=== PATIENT | male | born 1950 | race Caucasian/White ===

== ENCOUNTER → 2020-06-29 | Outpatient (CLI) | payer SELFPAY | END | disposition home or self-care (01) | LOC: LABSPEC 15:37 | PROVIDERS: PCP Family Medicine; Referring Provider Otolaryngology Otolaryngology/Facial Plastic Surgery; Visit Provider Otolaryngology Otolaryngology/Facial Plastic Surgery | DX: J32.9 Chronic sinusitis, unspecified (principal) | CPT/HCPCS: 87070; 87205 ==

== ENCOUNTER → 2020-08-24 10:46 | Outpatient (CLI) | payer OTHER, SELFPAY ==
[2020-08-24 11:20] LABS: Erythrocyte Sedimentation Rate 8 mm/hr (0-20)
[2020-08-24 11:21] LABS: Absolute Lymphocyte Count 1.35 X10^3/uL (0.83-4.51); Absolute Neutrophil Count 7.7 X10^3/uL (2.0-7.7); Basophil# 0.11 X10^3/uL; Basophil% 1.1 % (0-1); Eosinophil# 0.13 X10^3/uL; Eosinophils% 1.2 % (0-5); Hematocrit 51.7 % (40-54); Hemoglobin 17.8 g/dL (13.0-16.5); Lymphocyte # 1.35 X10^3/ul (4.0); Mean Corp Hgb Conc 34.4 g/dL (32-36); Mean Corpuscular Hgb 34.8 pg (27.0-32.0); Mean Platelet Vol. 9.3 fl (6.2-12.0); Monocyte# 1.05 X10^3/uL; Monocyte% 10.1 % (0-10); NRBC Flagged by Analyzer 0 % (0-5); Neutrophil # 7.74 X10^3/uL (2.7-7.7); Neutrophil % 74.3 % (47-70); Platelet Count 290 K/mm3 (150-450); RBC Distribution Width CV 12.3 % (11.6-14.6); RBC Distribution Width SD 46.6 fl (35.1-43.9); Red Blood Count 5.12 M/mm3 (4.6-6.2); White Blood Count 10.4 K/mm3 (4.4-11.0)
== END ==
PROVIDERS: PCP Family Medicine; Referring Provider Physician Assistant; Visit Provider Physician Assistant
DX: M16.12 Unilateral primary osteoarthritis, left hip (principal)
CPT/HCPCS: 36415; 85025; 85652; 86140

== ENCOUNTER 2021-01-10 07:48 | Day surgery (SDC) | payer OTHER, MEDICARE, SELFPAY ==
[2021-01-03 14:49] LABS: Hematocrit 45.4 % (40-54); Mean Corp Hgb Conc 35.2 g/dL (32-36); Mean Corpuscular Hgb 33.9 pg (27.0-32.0); Mean Corpuscular Volume 96.2 fL (80-94); Mean Platelet Vol. 9.6 fl (6.2-12.0); Platelet Count 269 K/mm3 (150-450); RBC Distribution Width CV 13.9 % (11.6-14.6); RBC Distribution Width SD 49.7 fl (35.1-43.9); Red Blood Count 4.72 M/mm3 (4.6-6.2); White Blood Count 10.7 K/mm3 (4.4-11.0)
[2021-01-03 15:18] LABS: Anion Gap 7 (5-15); BUN 10 mg/dL (7-18); BUN/Creat Ratio 14.2 RATIO (10-20); Chloride 107 mmol/L (98-107); EST Glomerular Filtration Rate 118 mL/min (>60); Est Glom Filt Rate - Afr Amer 143 mL/min (>60); Glucose 94 mg/dL (74-106); Potassium 3.1 mmol/L (3.5-5.1); Sodium Level 139 mmol/L (136-145)
[2021-01-03 15:19] LABS: International Normalized Ratio 1.1; Prothrombin Time (Protime)PT. 13.2 SECONDS (11.7-14.9)
[2021-01-03 15:20] LABS: Partial Thromboplast Time 26.9 Seconds (24.1-36.2)
[2021-01-03 15:23] LABS: AST(SGOT) 64 U/L (15-37); Alanine Aminotransfer ALT/SGPT 56 U/L (16-61); Alkaline Phosphatase 129 U/L (45-117); Bilirubin, Direct 0.45 mg/dL (0.00-0.30); Magnesium 1.7 mg/dL (1.6-2.6)
--- NOTE | 2021-01-04 09:04 | EKG12_ITS ---
Test Reason : PRE OP Blood Pressure : / mmHG Vent. Rate : 092 BPM Atrial Rate : 092 BPM P-R Int : 156 ms QRS Dur : 100 ms QT Int : 392 ms P-R-T Axes : 027 -01 013 degrees QTc Int : 484 ms Normal sinus rhythm Septal infarct , age undetermined Inferior infarct , age undetermined Abnormal ECG Confirmed by XI HARMON, NI ([id number]), marketing editor DEWAYNE WARNER ([id number]) on 01/04/2021 9:05:23 AM Referred By: Bar Angel Confirmed By:NI LAYNE MD
[2021-01-10] VITALS (12 sets, daily range): BP systolic 119–149; BP diastolic 66–83; PULSE 79–95; RESP 16; TEMP 36.3–37.3; O2SAT 94–100; BMI 27.6
[2021-01-10 08:31] LABS: Bedside Glucose 117 mg/dL (70-110)
[2021-01-10] MEDS: Lactated Ringers 1,000 ML 125 ML IV ×2 (08:49→10:46)
[2021-01-10] MEDS: Acetaminophen 500 MG Tablet 1000 MG PO ×2 (08:51→16:29)
[2021-01-10] MEDS: Gabapentin 600 MG Tablet PO (08:51)
--- NOTE | 2021-01-10 10:00 | FEM_PTH ---
PATIENT: ULICES HEAD LOC: [facility] [place] U#:[id number] AGE/SX: 70/M ROOM: RE01/10/[address]: Dr. Bar Angel DO : 1950 BED: DIS: 01/10/2021 SPEC #: [id number] RECD: 01/10/21 13:26 STATUS: ANDREINA RELorenza #: [id number] TEDDY: 01/10/21 10:[address]: Bar Angel DEPT: SURGICAL PATHOLOGY RECD BY: Monique Nolasco ENTERED: 01/11/21 08:29 SP TYPE: FEM HEAD OTHR DR: Dr. Mitchell Morocho MD Tissues: Femoral region, NOS Procedures: Decalcification bone/plaque Surgery Specimen Level IV HEADER OPERATION: ERAS, total hip replacement PRE-OP DIAGNOSIS: Idiopathic aseptic necrosis of left femur; osteoarthritis left hip TISSUE SUBMITTED: Left hip bone and soft tissue MICROSCOPIC DIAGNOSIS Left hip bone and tissue, total hip replacement/resection: Femoral head with degenerative osteoarthritic changes and focal changes consistent with avascular necrosis. PETER:anne 01/14/2021 MICROSCOPIC DESCRIPTION Slides are reviewed. GROSS DESCRIPTION Received is one container labeled with the patient's name and designated left hip bone and soft tissue. The specimen consists of a guidry femoral head with portion of femoral neck. The femoral head measures 5.5 x 5.5 x 4 cm and the femoral neck measures 1 cm in length. The articular surface shows focal area of guidry-white irregular area. The articular surface also shows focal area of osteophyte formation and eburnation. Also present in the specimen container are multiple irregular fragments of bone reamings and pink-yellow soft tissue measuring in aggregate 8 x 7 x 3 cm. It predominantly consists of bone reamings. Portion of articular cartilage is also noted detached from the femoral head which measures 3 x 2 x 0.2 cm. Sections reveal a focal guidry-white area underneath the irregular surface of the cartilage measuring 2.5 x 0.5 cm suspicious for avascular necrosis. Tool/Die Maker sections are submitted in three cassettes after decalcification as follows: 1 - bone reamings and detached piece of articular cartilage, 2 & 3 - femoral head. / PETER:anne 01/12/21 TC:3 CPT: 32779, 33221
--- NOTE | 2021-01-10 11:40 | RAD_ITS ---
STUDY: X-RAY - PELVIS AND LEFT HIP REASON FOR EXAM: Postop left hip arthroplasty. TECHNIQUE: 2 views of the pelvis and hip. COMPARISON: None. FINDINGS: There is postoperative gas in the soft tissues and overlying skin ascencion. Normal bilateral superior and inferior pubic rami. Normal pubic symphysis. Normal bilateral ischial tuberosities. There is a left hip arthroplasty without evidence of complication. RAD/Hip Min 2 Views (Portable) IMPRESSION: Uncomplicated left hip arthroplasty. Electronically Signed: Huber Estrella MD at 12:32 EDT Tel , Service support ,
--- NOTE | 2021-01-10 13:38 | PCM.OPRPT ---
Report of Operation Date of Procedure: 01/10/21 Pre-Operative Diagnosis: OA left hip Post-Operative Diagnosis: same Surgery/Procedure Performed:: Left THR Description of Surgical Findings:: Primary Surgeon/Physician: Bar Angel rn telehealth: Gene Carlson PA-C rn telehealth: Pre-Operative Diagnosis: OA left hip Post-Operative Diagnosis: same Surgery/Procedure Performed: Left THR Estimated Blood Loss: 150 cc Specimen's Removed:femoral head Type of Anesthesia: spinal ASA Class: ASA 2 Implants: [[place] size 9 Accolade 2 stem, 56 mm cup, MDM -4 x 132 ceramic femoral head ] Surgical Indications: Patient has severe end-stage osteoarthritic changes in the [left ] hip. They have failed conservative measures including activity modification, anti-inflammatories, use of assistive devices. This to the point where the pain affects their ability to enjoy life and complete activities of daily living without discomfort. Patient has elected to undergo the above procedure Procedure Description: The patient was greeted in the preoperative area the [left ] hip was marked with surgical marker preoperative antibiotics administered. The patient was then taken to or suite in stable condition. Preoperative tranexamic acid was also utilized. Once the patient was placed in the supine position on the operating room table and once adequate anesthesia was obtained they were then placed in the lateral decubitus position with the surgical hip facing the field. All bony prominences were well-padded. A commercial hip position was utilized. The appropriate extremity was then prepped and draped in usual sterile fashion. Ioban was placed on the skin. Surgical timeout was performed and surgery was commenced. A standard posterior approach to the hip was then performed. Incision was planned and carried out with a #10 blade scalpel. Dissection was then carried length of the incision to the IT band which was split proximally and distally. A Charnley retractor was then placed for soft tissue retraction exposing the piriformis. A standard posterior capsulotomy was performed. Severe eburnation of bone was noted and periarticular osteophytes were identified consistent with severe end-stage osteoarthritis. A femoral neck osteotomy guide was used to yumi the proximal femur. A femoral osteotomy was then created approximately 1 fingerbreadth above the lesser trochanter. This was measured and placed on the back table. Once this was complete acetabular retractors were placed anteriorly and posteriorly. Labrum was then removed from the acetabulum exposing the entire cup of the acetabulum. Sequential reaming was then commenced and the acetabulum was medialized and sequentially widened in order to accommodate appropriate size cup. The acetabular cup was then impacted into position to the appropriate depth referencing approximately 30? anteversion and 45? of inclination. Excellent purchase was obtained. An appropriate size MDM liner was then placed. Attention was then turned to the femoral preparation. The hip was placed in the 90/90 position and a lateralizing box osteotome was utilized. Femoral starting awl was used followed by sequential broaching to the appropriate size. Excellent purchase was obtained with the stem no stem subsidence and excellent rotational stability was confirmed. A calcar reamer was then used in the trial head neck was placed on the broach. The hip was then located and taken through full range of motion flexion internal and external rotation as well as extension. Excellent stability was noted no impingement was identified of the components and leg lengths appear to be appropriate. The hip was at this point dislocated and the trial femoral components were removed. The final femoral stem was then implanted and impacted to the appropriate depth. Again excellent purchase was obtained no stem subsidence or rotational instability was noted. The hip was once again trialed and confirmation of leg length and stability was performed. Soft tissue tension also appeared to be appropriate. At this point the hip was redislocated and the trunnion was cleaned and dried meticulously in the appropriate size MDM femoral head was placed on the clean dry trunnion using a 12/14 Almaraz taper. The hip was once again relocated and again taken through full range of motion. I did inject a cocktail of postoperative pain medication in the deep and superficial tissues. Copious irrigation was performed. Anatomic closure of the piriformis tendon was performed through drill holes in the greater trochanter. A #1 Vicryl 0 Vicryl was utilized in subcutaneous tissue and surgical ascencion were placed in the skin. A well-padded nonadherent dressing was applied. Patient was taken to PACU in stable condition. No complications were identified. Will follow standard postop protocol for total hip arthroplasty. My distribution center assistant played a vital role in the procedure beginning with positioning, holding retraction of soft tissues, positioning the leg to optimize visualization during the procedure and assisting with wound closure. Surgeon: Dr. Angel rn telehealth: Gene Carlson Type of Anesthesia: Spinal Anesthesiologist: Ever Serrano Specimen's removed: femoral head Estimated Blood Loss (mL): 150 cc Admit VTE Documentation VTE Present on Admission: No VTE Mechan Device Prophylaxis: SCD's and Thigh High GUS Hose VTE Pharm Prophylaxis ordered?: Yes
[2021-01-10] MEDS: oxyCODONE 5 MG Tablet PO (13:56)
--- NOTE | 2021-01-10 17:10 | SUR.PHASEII ---
PATIENT UNABLE TO VOID, HAS A HISTORY OF DIFFICULTY VOIDING AFTER SURGERY. STRAIGHT CATH FOR 600 ML LISA URINE AT [address] EDWARDS ORDER. ENCOURAGED PATIENT TO INCREASE PO FLUID INTAKE, PATIENT & VERBALIZE UNDERSTANDING. PT/OT HERE FOR EVAL, AMBULATION & GAIT TRAINING.
== END 2021-01-10 18:18 ==
LOC: SDC 07:49 → AC 07:49
PROVIDERS: Anesthesiology; PCP Family Medicine; Referring Provider Orthopaedic Surgery; Visit Provider Orthopaedic Surgery
PROC: 0SRB0JZ Replacement of Left Hip Joint with Synthetic Substitute, Open Approach (ICD-10-PCS; CPT 27130; principal; 2021-01-10 09:35)
DX: M16.12 Unilateral primary osteoarthritis, left hip (principal); E66.3 Overweight; Z68.28 Body mass index [BMI] 28.0-28.9, adult; J45.909 Unspecified asthma, uncomplicated; K21.9 Gastro-esophageal reflux disease without esophagitis; H91.93 Unspecified hearing loss, bilateral; Z87.891 Personal history of nicotine dependence
CPT/HCPCS: 01214; 27130; 36415; 73502; 80048; 80076; 82962; 83735; 85027; 85610; 85730; 87081; 87426; 88305; 88307; 88311; 93005; 97162; C1776; C9803; J7120; J2405